=== PATIENT | female | born 1990 | race Caucasian/White ===

== ENCOUNTER → 2017-05-18 | Outpatient (CLI) | payer SELFPAY ==
[~2017-05-18] MED LIST: IBUP200T2 PO; LORTTAB5 PO; vitamin d PO
--- NOTE | 2017-05-19 02:39 | REP ---
Clinical: Fracture. Technique: AP, lateral, bilateral oblique views of the right ankle. Findings: Evaluation is somewhat limited due to overlying fiberglass cast material. Soft tissue swelling at the ankle is suggested. No obvious acute fracture or dislocation is identified although evaluation is somewhat limited. Nondisplaced fracture involving the the mid tibial shaft identified as well as suspected oblique fracture of the mid fibular shaft. Impression: 1. Limited evaluation due to overlying cast material. 2. Soft tissue swelling at the ankle without obvious acute fracture or dislocation. 3. Fractures involving the tibial and fibular shafts identified. Signed by Cedrick Ku MD 05/19/2017 02:31 A
--- NOTE | 2017-05-19 02:46 | REP ---
Clinical: Trauma. Technique: AP and lateral views of the right tibia / fibula. Findings: Evaluation is somewhat limited due to overlying cast material. Comminuted fractures involving the mid to fibular and tibial shafts noted with essentially shattered appearance to the fibular fracture and nondisplaced appearance to the mid tibial shaft fracture with satisfactory alignment. Impression: Comminuted fractures involving the mid tibial and fibular shafts. Tibial fracture is nondisplaced and demonstrates satisfactory stable alignment. Signed by Cedrick Ku MD 05/19/2017 02:38 A
== END ==
LOC: M RAD 10:22
PROVIDERS: ATTEND Family Medicine Addiction Medicine
DX: S82.291A Other fracture of shaft of right tibia, initial encounter for closed fracture (principal); W18.30XA Fall on same level, unspecified, initial encounter; Y92.009 Unspecified place in unspecified non-institutional (private) residence as the place of occurrence of the external cause

== ENCOUNTER → 2017-07-06 | Outpatient (CLI) | payer OTHER ==
--- NOTE | 2017-07-06 20:08 | REP ---
CHEST X-RAY, PA AND LATERAL: 07/06/2017. Comparison: CT angiogram and chest x-ray 01/24/2014. Clinical history: Chest pain. Lungs are well inflated and without infiltrate, effusion, atelectasis or mass. Heart, mediastinal, and hilar contours are normal. Airway and aorta intact. Bones unremarkable. No free air under the diaphragm. Impression: 1. No acute cardiopulmonary change. Stable chest. Signed by Danny Ty MD 07/07/2017 11:12 A
--- NOTE | 2017-07-06 21:53 | ECGEPIP ---
Stationary ECG Study [facility] Test Date: 2017-07-06 Pat Name: GENEVIEVE RENTERIA Department: Room: - Gender: F Company Doctor: : 1990 Requested By: Alfredito Harden Order Number: [id number] Reading MD: Bob Ortiz Measurements Intervals [place] Rate: 55 P: 30 CT: 148 QRS: 11 QRSD: 91 T: 30 QT: 409 QTc: 395 Interpretive Statements SINUS BRADYCARDIA LAST TRACING ON 01/24/2014 AT 17:17:50, HEART RATE IS NOW SLOWER OTHERWISE NO SIGNIFICANT CHANGES Electronically Signed On 07-06-2017 21:53:27 EDT by Bob Ortiz
== END ==
LOC: M RAD 16:54
PROVIDERS: ATTEND Family Medicine Addiction Medicine
DX: R07.1 Chest pain on breathing (principal)

== ENCOUNTER → 2018-01-05 | Outpatient (CLI) | payer OTHER ==
[2018-01-05 08:59] LABS: ALBUMIN 3.7 GM/DL (3.2-5.2); ALBUMIN/GLOBULIN RATIO 1.09 (1.00-1.93); ALKALINE PHOSPHATASE 88 U/L (45-117); ALT/SGPT 20 U/L (12-78); ANION GAP 4 MEQ/L (8-16); AST/SGOT 15 U/L (7-37); BILIRUBIN,TOTAL 0.3 MG/DL (0.2-1.0); BLOOD UREA NITROGEN 7 MG/DL (7-18); CALCIUM LEVEL 8.7 MG/DL (8.5-10.1); CARBON DIOXIDE LEVEL 29 MEQ/L (21-32); CHLORIDE LEVEL 107 MEQ/L (98-107); CHOLESTEROL LEVEL 158 MG/DL (<200); CREATININE FOR GFR 0.71 MG/DL (0.55-1.30); GLOMERULAR FILTRATION RATE > 60.0 (>60); GLUCOSE, FASTING 98 MG/DL (70-100); HDL CHOLESTEROL 44 MG/DL (>40); NON-HDL-C 114 MG/DL; POTASSIUM SERUM 4.4 MEQ/L (3.5-5.1); SODIUM LEVEL 140 MEQ/L (136-145); TOTAL PROTEIN 7.1 GM/DL (6.4-8.2); TRIGLYCERIDES LEVEL 70 MG/DL (<150)
== END ==
LOC: M LAB 08:12
DX: E03.9 Hypothyroidism, unspecified (principal)
CPT/HCPCS: 84443